=== PATIENT | female | born 1930 | race Caucasian/White ===

== ENCOUNTER 2017-07-28 16:33 | Inpatient (IN) | payer OTHER, BC, MEDICARE ==
[~2017-07-28] VITALS: Ht 152.4 cm; Wt 81.2 kg
[~2017-07-28 16:33] MED LIST: ADVAIR 250/501 DISK IH; ALLOPURINOL100 MG PO; ANASTROZOLE1 MG PO; ATORVASTATIN CA40 MG PO; DUONEB 2.5-0.5 M3 ML IH; ELIQUIS5 MG PO; GLIPIZIDE5 MG PO; LEVAQUIN750 MG PO; LOSARTAN POTAS100 MG PO; TOPROL XL100 MG PO
[2017-07-28 18:37] LABS: HEMATOCRIT 35.4 % (36.0-46.0); MCHC 33.1 G/DL (30.0-36.0); MCV 87.8 FL (83-99); NRBC (%) 0.2 /100 WBC (0-0); RBC DIS.WIDTH-CV 17.2 % (11.8-14.6); RBC DIS.WIDTH-SD 55.6 % (39-53); RED BLOOD COUNT 4.03 M/uL (3.80-5.20); WHITE BLOOD COUNT 19.4 K/uL (4.1-10.2)
[2017-07-28 18:48] LABS: CHLORIDE 106 mEq/L (99-109); POTASSIUM 3.3 mEq/L (3.7-5.4); SODIUM 133 mEq/L (136-147)
[2017-07-28 18:50] LABS: GLUCOSE 73 mg/dL (70-99)
[2017-07-28 18:51] LABS: ANION GAP 11 MEQ/L (2-14)
[2017-07-28 18:52] LABS: TOTAL BILIRUBIN 5.6 mg/dL (0.0-1.0)
[2017-07-28 18:53] LABS: ALKALINE PHOSPHATASE 268 IU/L (3-129); GFR ESTIMATE (CALCULATED) 38 mL/min/
[2017-07-28 18:54] LABS: UREA NITROGEN (BUN) 34 mg/dL (9-23)
[2017-07-28 19:48] LABS: ABS NEUTROPHIL COUNT 17.5; ANISOCYTOSIS 1+; BAND NEUTROPHILS 26.1 % (0-8.0); EOSINOPHIL ABS CT 0; HYPOCHROMASIA 1+; LYMPHOCYTES 5.2 % (15.0-45.0); MACROCYTES 1+; MYELOCYTES 0.9 %; OVALOCYTES 1+; PLAT.SUFFICIENCY ADEQUATE; PLATELET CLUMPS PRESENT - PLATELET COUNT APPEARS ADQ.; PLATELET COUNT ND K/uL (156-360); POIKILOCYTOSIS 1+; SEG.NEUTROPHILS 64.3 % (46.0-76.0)
[2017-07-28 19:49] LABS: MEAN PLAT.VOLUME ND uM^3 (9.5-12.4)
[2017-07-28 20:09] LABS: LIPASE 146 U/L (1.0-51.0)
[2017-07-28 20:25] LABS: ADD MIUA? YES; BILIRUBIN MODERATE; BLOOD SMALL; COLOR AMBER ((YELLOW)); GLUCOSE (STRIP) NEGATIVE; KETONES NEGATIVE; LEUKOCYTES TRACE; NITRITE NEGATIVE; PROTEIN (STRIP) >=500; SPECIFIC GRAVITY 1.019 (1.000-1.030)
[2017-07-28 20:44] LABS: ICTOTEST POSITIVE
[2017-07-28 20:47] LABS: EPITHELIAL CELLS 1+ /HPF; RED BLOOD CELLS RARE /HPF (0-5)
[2017-07-28 20:48] LABS: BACTERIA 3+ /HPF; CASTS PRESENT /LPF; COARSE GRANULAR CASTS RARE /LPF; CRYSTALS PRESENT; MUCUS RARE /LPF; UCUL ADDED? YES
[2017-07-28 20:51] LABS: WAXY CASTS 0-5 /LPF
[2017-07-28 20:52] LABS: AMORPHOUS URATES CRYSTALS 1+
[2017-07-28] MEDS ORDERED: ASPIR 8181 M1 PO (23:05)
[2017-07-29 01:31] VITALS: BP 100/56
[2017-07-29 04:13] VITALS: BP 78/42
[2017-07-29 06:07] LABS: HEMATOCRIT 30.4 % (36.0-46.0); MCH 28.7 PG (29.0-34.0); MCHC 32.2 G/DL (30.0-36.0); MCV 89.1 FL (83-99); MEAN PLAT.VOLUME 11.8 uM^3 (9.5-12.4); PLATELET COUNT 272 K/uL (156-360); RED BLOOD COUNT 3.41 M/uL (3.80-5.20); WHITE BLOOD COUNT 14.7 K/uL (4.1-10.2)
[2017-07-29 06:33] LABS: ALKALINE PHOSPHATASE 198 IU/L (3-129); ANION GAP 8 MEQ/L (2-14); CHLORIDE 109 MEQ/L (99-109); DIRECT BILIRUBIN 3.8 mg/dL (0.0-0.3); GFR ESTIMATE (CALCULATED) 30 mL/min/; GLUCOSE 65 mg/dL (70-99); SAMPLE HEMOLYSIS CHECK 0; SAMPLE ICTERIC CHECK 1; SAMPLE LIPEMIA CHECK 0; SODIUM 139 MEQ/L (136-147); TOTAL BILIRUBIN 5.4 MG/DL (0.0-1.0); UREA NITROGEN (BUN) 40 mg/dL (9-23)
[2017-07-29 06:34] LABS: POTASSIUM 4.4 MEQ/L (3.7-5.4)
[2017-07-29 07:57] VITALS: BP 96/58
[2017-07-29 11:38] VITALS: BP 107/51
[2017-07-29 15:39] LABS: ANION GAP 10 MEQ/L (2-14); CHLORIDE 109 MEQ/L (99-109); GFR ESTIMATE (CALCULATED) 30 mL/min/; GLUCOSE 45 mg/dL (70-99); POTASSIUM 3.7 MEQ/L (3.7-5.4); SAMPLE HEMOLYSIS CHECK 0; SAMPLE ICTERIC CHECK 1; SAMPLE LIPEMIA CHECK 0; SODIUM 137 MEQ/L (136-147); UREA NITROGEN (BUN) 46 mg/dL (9-23)
[2017-07-29 16:03] VITALS: BP 93/52
[2017-07-29 19:36] VITALS: BP 92/49
[2017-07-30 00:31] VITALS: BP 105/51
[2017-07-30 04:03] VITALS: BP 115/57
[2017-07-30 05:51] LABS: HEMATOCRIT 27.4 % (36.0-46.0); MCH 28.6 PG (29.0-34.0); MCHC 32.5 G/DL (30.0-36.0); MCV 88.1 FL (83-99); MEAN PLAT.VOLUME 11.7 uM^3 (9.5-12.4); NRBC (%) 0.4 /100 WBC (0-0); PLATELET COUNT 246 K/uL (156-360); RBC DIS.WIDTH-CV 17.9 % (11.8-14.6); RED BLOOD COUNT 3.11 M/uL (3.80-5.20); WHITE BLOOD COUNT 13.3 K/uL (4.1-10.2)
[2017-07-30 06:37] LABS: ALKALINE PHOSPHATASE 222 IU/L (3-129); ANION GAP 11 MEQ/L (2-14); CHLORIDE 114 MEQ/L (99-109); GFR ESTIMATE (CALCULATED) 28 mL/min/; GLUCOSE 38 mg/dL (70-99); POTASSIUM 3.9 MEQ/L (3.7-5.4); SAMPLE HEMOLYSIS CHECK 0; SAMPLE ICTERIC CHECK 1; SAMPLE LIPEMIA CHECK 0; SODIUM 142 MEQ/L (136-147); TOTAL BILIRUBIN 5.5 MG/DL (0.0-1.0); UREA NITROGEN (BUN) 50 mg/dL (9-23)
[2017-07-30 07:54] VITALS: BP 111/57
[2017-07-30 09:05] LABS: TROP-I INTERPRETATION NEGATIVE
[2017-07-30 09:18] LABS: POINT-OF-CARE METER ID UU14162508
[2017-07-30 12:52] LABS: POINT-OF-CARE METER ID UU14162508
[2017-07-30 15:34] VITALS: BP 118/58
[2017-07-30 15:54] LABS: EOSINOPHIL (%) 0 % (0-5); HEMATOCRIT 28.5 % (36.0-46.0); IMMATURE GRANULOCYTE COUNT 0.2 K/uL; INSTRUMENT ABS NEUTROPHIL CT 8.9 K/uL; LYMPHOCYTE COUNT 0.7 K/uL (1.0-2.8); MCH 28.4 PG (29.0-34.0); MCHC 32.6 G/DL (30.0-36.0); MCV 86.9 FL (83-99); MEAN PLAT.VOLUME 11.7 uM^3 (9.5-12.4); MONOCYTE (%) 10.5 % (3-12); MONOCYTE COUNT 1.2 K/uL (0-0.8); NEUTROPHIL (%) 81.2 % (45-76); NEUTROPHIL COUNT 8.9 K/uL (1.8-6.4); NRBC (%) 0.6 /100 WBC (0-0); PLATELET COUNT 236 K/uL (156-360); RBC DIS.WIDTH-CV 17.7 % (11.8-14.6); RBC DIS.WIDTH-SD 56.4 % (39-53); RED BLOOD COUNT 3.28 M/uL (3.80-5.20)
[2017-07-30 15:55] LABS: POINT-OF-CARE METER ID UU14162508
[2017-07-30 16:03] LABS: INTER. NORMALIZED RATIO 1.7; PROTHROMBIN TIME 19.2 SEC (10.2-12.9)
[2017-07-30 16:24] LABS: TROP-I INTERPRETATION INDETERMINATE; TROPONIN-I 0.52 ng/mL (0.0-0.30)
[2017-07-30 16:25] LABS: ANION GAP 8 MEQ/L (2-14); CHLORIDE 113 MEQ/L (99-109); GFR ESTIMATE (CALCULATED) 25 mL/min/; GLUCOSE 122 mg/dL (70-99); POTASSIUM 3.5 MEQ/L (3.7-5.4); SAMPLE HEMOLYSIS CHECK 0; SAMPLE ICTERIC CHECK 1; SAMPLE LIPEMIA CHECK 0; SODIUM 139 MEQ/L (136-147); UREA NITROGEN (BUN) 52 mg/dL (9-23)
[2017-07-30 20:50] VITALS: BP 120/59
[2017-07-30 21:16] LABS: POINT-OF-CARE METER ID UU14314084
[2017-07-30 22:11] LABS: POINT-OF-CARE METER ID UU14162508
[2017-07-31] VITALS (7 sets, daily range): BP systolic 101–141; BP diastolic 47–61
[2017-07-31 05:55] LABS: HEMATOCRIT 26.4 % (36.0-46.0); MCH 28.8 PG (29.0-34.0); MCV 87.4 FL (83-99); MEAN PLAT.VOLUME 11.9 uM^3 (9.5-12.4); NRBC (%) 0.5 /100 WBC (0-0); PLATELET COUNT 219 K/uL (156-360); RBC DIS.WIDTH-CV 18.5 % (11.8-14.6); RBC DIS.WIDTH-SD 59.4 % (39-53); RED BLOOD COUNT 3.02 M/uL (3.80-5.20); WHITE BLOOD COUNT 10.1 K/uL (4.1-10.2)
[2017-07-31 06:16] LABS: POINT-OF-CARE METER ID UU14162508
[2017-07-31 06:32] LABS: ALKALINE PHOSPHATASE 244 IU/L (3-129); ANION GAP 9 MEQ/L (2-14); CHLORIDE 113 MEQ/L (99-109); GFR ESTIMATE (CALCULATED) 24 mL/min/; POTASSIUM 3.7 MEQ/L (3.7-5.4); SAMPLE HEMOLYSIS CHECK 0; SAMPLE ICTERIC CHECK 1; SAMPLE LIPEMIA CHECK 0; SODIUM 138 MEQ/L (136-147); TOTAL BILIRUBIN 4.9 MG/DL (0.0-1.0); UREA NITROGEN (BUN) 49 mg/dL (9-23)
[2017-07-31 06:34] LABS: GLUCOSE 188 mg/dL (70-99)
[2017-07-31 07:42] LABS: TROP-I INTERPRETATION INDETERMINATE; TROPONIN-I 0.33 ng/mL (0.0-0.30)
[2017-07-31 12:11] LABS: POINT-OF-CARE METER ID UU14162508
[2017-07-31 15:10] LABS: HEMATOCRIT 29.1 % (36.0-46.0); MCHC 31.6 G/DL (30.0-36.0); MCV 88.4 FL (83-99); MEAN PLAT.VOLUME 11.9 uM^3 (9.5-12.4); NRBC (%) 0.4 /100 WBC (0-0); PLATELET COUNT 222 K/uL (156-360); RBC DIS.WIDTH-CV 18.6 % (11.8-14.6); RBC DIS.WIDTH-SD 61.1 % (39-53); RED BLOOD COUNT 3.29 M/uL (3.80-5.20); WHITE BLOOD COUNT 10.2 K/uL (4.1-10.2)
[2017-07-31 15:30] LABS: TROP-I INTERPRETATION NEGATIVE; TROPONIN-I 0.27 ng/mL (0.0-0.30)
[2017-07-31 15:37] LABS: ANION GAP 9 MEQ/L (2-14); CHLORIDE 113 MEQ/L (99-109); POTASSIUM 3.6 MEQ/L (3.7-5.4); SAMPLE HEMOLYSIS CHECK 0; SAMPLE ICTERIC CHECK 1; SAMPLE LIPEMIA CHECK 0; SODIUM 139 MEQ/L (136-147); TOTAL BILIRUBIN 4.7 MG/DL (0.0-1.0)
[2017-07-31 15:47] LABS: ALKALINE PHOSPHATASE 266 IU/L (3-129); GFR ESTIMATE (CALCULATED) 21 mL/min/; GLUCOSE 202 mg/dL (70-99); UREA NITROGEN (BUN) 49 mg/dL (9-23)
[2017-07-31 16:40] LABS: POINT-OF-CARE METER ID UU14162508
[2017-07-31 18:32] LABS: BASE EXCESS -9.1 mEq/L (-3 to +3); BICARBONATE 14.8 mEq/L (22-26); CARBOXY HGB 1.4 % (0-5); METHEMOGLOBIN 1.5 % (0-1.5); PCO2 25 mm Hg (35-45); PO2 74 mm Hg (80-100); pH 7.38 (7.35-7.45)
[2017-07-31 18:34] LABS: COMMENTS - BLOOD GASES C+; DEVICE ROOM AIR; SITE LR; TOTAL RESP RATE 20 resp/min
[2017-07-31 20:25] LABS: ANION GAP 8 MEQ/L (2-14); CHLORIDE 115 MEQ/L (99-109); POTASSIUM 3.5 MEQ/L (3.7-5.4); SAMPLE HEMOLYSIS CHECK 0; SAMPLE ICTERIC CHECK 1; SAMPLE LIPEMIA CHECK 0; SODIUM 138 MEQ/L (136-147)
[2017-07-31 20:30] LABS: GFR ESTIMATE (CALCULATED) 21 mL/min/; GLUCOSE 199 mg/dL (70-99); UREA NITROGEN (BUN) 49 mg/dL (9-23)
[2017-08-01] VITALS (7 sets, daily range): BP systolic 110–158; BP diastolic 53–74
[2017-08-01 05:16] LABS: HEMATOCRIT 27.4 % (36.0-46.0); MCHC 32.1 G/DL (30.0-36.0); MCV 87.3 FL (83-99); MEAN PLAT.VOLUME 12.3 uM^3 (9.5-12.4); NRBC (%) 0.3 /100 WBC (0-0); PLATELET COUNT 195 K/uL (156-360); RBC DIS.WIDTH-SD 60.8 % (39-53); RED BLOOD COUNT 3.14 M/uL (3.80-5.20); WHITE BLOOD COUNT 10.6 K/uL (4.1-10.2)
[2017-08-01 05:59] LABS: ALKALINE PHOSPHATASE 243 IU/L (3-129); ANION GAP 9 MEQ/L (2-14); CHLORIDE 117 MEQ/L (99-109); GFR ESTIMATE (CALCULATED) 18 mL/min/; GLUCOSE 206 mg/dL (70-99); POTASSIUM 3.5 MEQ/L (3.7-5.4); SAMPLE HEMOLYSIS CHECK 0; SAMPLE ICTERIC CHECK 1; SAMPLE LIPEMIA CHECK 0; SODIUM 141 MEQ/L (136-147); TOTAL BILIRUBIN 3.6 MG/DL (0.0-1.0); UREA NITROGEN (BUN) 47 mg/dL (9-23)
[2017-08-02 04:38] VITALS: BP 139/67
[2017-08-02 05:30] LABS: HEMATOCRIT 26.9 % (36.0-46.0); MCH 28.3 PG (29.0-34.0); MCHC 33.1 G/DL (30.0-36.0); MCV 85.7 FL (83-99); MEAN PLAT.VOLUME 12.7 uM^3 (9.5-12.4); NRBC (%) 0.1 /100 WBC (0-0); PLATELET COUNT 188 K/uL (156-360); RBC DIS.WIDTH-CV 19.5 % (11.8-14.6); RBC DIS.WIDTH-SD 60.5 % (39-53); RED BLOOD COUNT 3.14 M/uL (3.80-5.20); WHITE BLOOD COUNT 13.7 K/uL (4.1-10.2)
[2017-08-02 06:01] LABS: ALKALINE PHOSPHATASE 228 IU/L (3-129); ANION GAP 8 MEQ/L (2-14); CHLORIDE 116 MEQ/L (99-109); GFR ESTIMATE (CALCULATED) 20 mL/min/; GLUCOSE 146 mg/dL (70-99); POTASSIUM 3.7 MEQ/L (3.7-5.4); SAMPLE HEMOLYSIS CHECK 0; SAMPLE ICTERIC CHECK 0; SAMPLE LIPEMIA CHECK 0; SODIUM 144 MEQ/L (136-147); UREA NITROGEN (BUN) 45 mg/dL (9-23)
[2017-08-02 06:03] LABS: TOTAL BILIRUBIN 2.7 MG/DL (0.0-1.0)
[2017-08-02 07:43] VITALS: BP 137/64
[2017-08-02 11:25] VITALS: BP 141/70
[2017-08-02 14:23] VITALS: BP 155/70
[2017-08-02 19:52] VITALS: BP 143/67
[2017-08-03] VITALS (7 sets, daily range): BP systolic 130–166; BP diastolic 58–79
[2017-08-03 05:34] LABS: EOSINOPHIL (%) 1.1 % (0-5); EOSINOPHIL COUNT 0.1 K/uL (0-0.3); HEMATOCRIT 25.3 % (36.0-46.0); IMMATURE GRANULOCYTE (%) 1.9 % (0.0-0.7); IMMATURE GRANULOCYTE COUNT 0.2 K/uL; INSTRUMENT ABS NEUTROPHIL CT 8.6 K/uL; LYMPHOCYTE COUNT 1.2 K/uL (1.0-2.8); MCH 28.3 PG (29.0-34.0); MCHC 34.4 G/DL (30.0-36.0); MCV 82.4 FL (83-99); MEAN PLAT.VOLUME 12.9 uM^3 (9.5-12.4); MONOCYTE (%) 10.7 % (3-12); MONOCYTE COUNT 1.2 K/uL (0-0.8); NEUTROPHIL COUNT 8.6 K/uL (1.8-6.4); PLATELET COUNT 198 K/uL (156-360); RBC DIS.WIDTH-CV 18.2 % (11.8-14.6); RBC DIS.WIDTH-SD 54.2 % (39-53); RED BLOOD COUNT 3.07 M/uL (3.80-5.20); WHITE BLOOD COUNT 11.3 K/uL (4.1-10.2)
[2017-08-03 05:59] LABS: ALKALINE PHOSPHATASE 202 IU/L (3-129); ANION GAP 7 MEQ/L (2-14); CHLORIDE 107 MEQ/L (99-109); GFR ESTIMATE (CALCULATED) 24 mL/min/; GLUCOSE 131 mg/dL (70-99); MAGNESIUM 1.6 mg/dl (1.3-2.7); SAMPLE HEMOLYSIS CHECK 0; SAMPLE ICTERIC CHECK 0; SAMPLE LIPEMIA CHECK 0; SODIUM 141 MEQ/L (136-147); TOTAL BILIRUBIN 2.7 MG/DL (0.0-1.0); UREA NITROGEN (BUN) 44 mg/dL (9-23)
[2017-08-04] VITALS (7 sets, daily range): BP systolic 106–171; BP diastolic 56–85
[2017-08-04 06:26] LABS: EOSINOPHIL COUNT 0.1 K/uL (0-0.3); HEMATOCRIT 25.7 % (36.0-46.0); IMMATURE GRANULOCYTE (%) 1.5 % (0.0-0.7); IMMATURE GRANULOCYTE COUNT 0.2 K/uL; INSTRUMENT ABS NEUTROPHIL CT 8.4 K/uL; LYMPHOCYTE COUNT 1.3 K/uL (1.0-2.8); MCH 28.7 PG (29.0-34.0); MCHC 34.6 G/DL (30.0-36.0); MCV 82.9 FL (83-99); MEAN PLAT.VOLUME 12.9 uM^3 (9.5-12.4); MONOCYTE (%) 8.8 % (3-12); NEUTROPHIL (%) 76.4 % (45-76); NEUTROPHIL COUNT 8.4 K/uL (1.8-6.4); PLATELET COUNT 210 K/uL (156-360); RBC DIS.WIDTH-CV 18.2 % (11.8-14.6); RBC DIS.WIDTH-SD 54.2 % (39-53); WHITE BLOOD COUNT 10.9 K/uL (4.1-10.2)
[2017-08-04 06:46] LABS: ALKALINE PHOSPHATASE 173 IU/L (3-129); ANION GAP 7 MEQ/L (2-14); CHLORIDE 108 MEQ/L (99-109); GFR ESTIMATE (CALCULATED) 30 mL/min/; GLUCOSE 89 mg/dL (70-99); MAGNESIUM 1.5 mg/dl (1.3-2.7); POTASSIUM 4.1 MEQ/L (3.7-5.4); SAMPLE HEMOLYSIS CHECK 0; SAMPLE ICTERIC CHECK 1; SAMPLE LIPEMIA CHECK 0; SODIUM 144 MEQ/L (136-147); TOTAL BILIRUBIN 3.2 MG/DL (0.0-1.0); UREA NITROGEN (BUN) 37 mg/dL (9-23)
[2017-08-05 04:23] VITALS: BP 132/61
[2017-08-05 05:28] LABS: EOSINOPHIL (%) 1.2 % (0-5); EOSINOPHIL COUNT 0.2 K/uL (0-0.3); HEMATOCRIT 26.4 % (36.0-46.0); IMMATURE GRANULOCYTE (%) 1.1 % (0.0-0.7); IMMATURE GRANULOCYTE COUNT 0.1 K/uL; INSTRUMENT ABS NEUTROPHIL CT 9.3 K/uL; LYMPHOCYTE COUNT 1.7 K/uL (1.0-2.8); MCH 28.5 PG (29.0-34.0); MCHC 33.7 G/DL (30.0-36.0); MCV 84.6 FL (83-99); MEAN PLAT.VOLUME 12.8 uM^3 (9.5-12.4); MONOCYTE (%) 8.1 % (3-12); NEUTROPHIL COUNT 9.3 K/uL (1.8-6.4); PLATELET COUNT 251 K/uL (156-360); RBC DIS.WIDTH-CV 18.1 % (11.8-14.6); RBC DIS.WIDTH-SD 55.1 % (39-53); RED BLOOD COUNT 3.12 M/uL (3.80-5.20); WHITE BLOOD COUNT 12.3 K/uL (4.1-10.2)
[2017-08-05 05:45] LABS: ALKALINE PHOSPHATASE 151 IU/L (3-129); ANION GAP 7 MEQ/L (2-14); CHLORIDE 108 MEQ/L (99-109); GFR ESTIMATE (CALCULATED) 38 mL/min/; GLUCOSE 89 mg/dL (70-99); MAGNESIUM 1.6 mg/dl (1.3-2.7); SAMPLE HEMOLYSIS CHECK 0; SAMPLE ICTERIC CHECK 0; SAMPLE LIPEMIA CHECK 0; SODIUM 141 MEQ/L (136-147); UREA NITROGEN (BUN) 38 mg/dL (9-23)
[2017-08-05 05:46] LABS: TOTAL BILIRUBIN 2.5 MG/DL (0.0-1.0)
[2017-08-05 08:30] VITALS: BP 179/84
[2017-08-05 12:02] VITALS: BP 161/77
[2017-08-05 15:34] VITALS: BP 154/73
[2017-08-05 19:43] VITALS: BP 149/65
[2017-08-05 23:26] VITALS: BP 148/75
[2017-08-06 04:09] VITALS: BP 157/70
[2017-08-06 05:38] LABS: EOSINOPHIL (%) 1.3 % (0-5); EOSINOPHIL COUNT 0.1 K/uL (0-0.3); HEMATOCRIT 25.7 % (36.0-46.0); IMMATURE GRANULOCYTE (%) 1.1 % (0.0-0.7); IMMATURE GRANULOCYTE COUNT 0.1 K/uL; INSTRUMENT ABS NEUTROPHIL CT 6.5 K/uL; LYMPHOCYTE COUNT 1.5 K/uL (1.0-2.8); MCH 29.1 PG (29.0-34.0); MCHC 33.9 G/DL (30.0-36.0); MEAN PLAT.VOLUME 11.7 uM^3 (9.5-12.4); MONOCYTE (%) 7.9 % (3-12); MONOCYTE COUNT 0.7 K/uL (0-0.8); NEUTROPHIL COUNT 6.5 K/uL (1.8-6.4); PLATELET COUNT 247 K/uL (156-360); RBC DIS.WIDTH-CV 18.5 % (11.8-14.6); RBC DIS.WIDTH-SD 56.6 % (39-53); RED BLOOD COUNT 2.99 M/uL (3.80-5.20); WHITE BLOOD COUNT 8.9 K/uL (4.1-10.2)
[2017-08-06 07:20] VITALS: BP 168/65
[2017-08-06 07:30] LABS: ALKALINE PHOSPHATASE 157 IU/L (3-129); ANION GAP ND MEQ/L (2-14); CHLORIDE 110 MEQ/L (99-109); GLUCOSE 96 mg/dL (70-99); POTASSIUM 3.6 MEQ/L (3.7-5.4); SAMPLE HEMOLYSIS CHECK 0; SAMPLE ICTERIC CHECK 0; SAMPLE LIPEMIA CHECK 0; SODIUM 144 MEQ/L (136-147); UREA NITROGEN (BUN) 37 mg/dL (9-23)
[2017-08-06 07:31] LABS: TOTAL BILIRUBIN 1.9 MG/DL (0.0-1.0)
[2017-08-06 08:11] LABS: GFR ESTIMATE (CALCULATED) 45 mL/min/
[2017-08-06 12:04] VITALS: BP 152/71
[2017-08-06 16:22] VITALS: BP 150/69
[2017-08-06 19:32] VITALS: BP 164/77
[2017-08-06 23:42] VITALS: BP 161/72
[2017-08-07 04:00] VITALS: BP 168/76
[2017-08-07 05:50] LABS: HEMATOCRIT 26.2 % (36.0-46.0); MCH 28.8 PG (29.0-34.0); MCHC 32.8 G/DL (30.0-36.0); MCV 87.6 FL (83-99); MEAN PLAT.VOLUME 11.5 uM^3 (9.5-12.4); PLATELET COUNT 298 K/uL (156-360); RBC DIS.WIDTH-CV 18.3 % (11.8-14.6); RBC DIS.WIDTH-SD 55.5 % (39-53); RED BLOOD COUNT 2.99 M/uL (3.80-5.20); WHITE BLOOD COUNT 8.2 K/uL (4.1-10.2)
[2017-08-07 06:13] LABS: ALKALINE PHOSPHATASE 163 IU/L (3-129); ANION GAP 4 MEQ/L (2-14); CHLORIDE 110 MEQ/L (99-109); GFR ESTIMATE (CALCULATED) 50 mL/min/; GLUCOSE 94 mg/dL (70-99); MAGNESIUM 1.6 mg/dl (1.3-2.7); POTASSIUM 3.9 MEQ/L (3.7-5.4); SAMPLE HEMOLYSIS CHECK 0; SAMPLE ICTERIC CHECK 0; SAMPLE LIPEMIA CHECK 0; SODIUM 143 MEQ/L (136-147); TOTAL BILIRUBIN 1.7 MG/DL (0.0-1.0); UREA NITROGEN (BUN) 35 mg/dL (9-23)
[2017-08-07] MEDS ORDERED: AMOX TR-K CLV1 EAC3 PO (07:00)
[2017-08-07] MEDS ORDERED: ELIQUIS2.5 MG PO (07:01)
[2017-08-07 07:49] VITALS: BP 162/72
== END 2017-08-07 11:13 | DRG 444 ==
LOC: EME 16:33 → 4EAST 23:39 → 2EASTP 23:39 → EDOF 23:39 → ENRESERV 23:43 → 2EASTP 07-29 01:10 → ENRESERV 07-31 19:30 → 4EAST 07-31 21:21
PROVIDERS: Emergency Medicine; Internal Medicine; Radiology Diagnostic Radiology
DX: K80.42 Calculus of bile duct with acute cholecystitis without obstruction (principal); N17.0 Acute kidney failure with tubular necrosis; K85.10 Biliary acute pancreatitis without necrosis or infection; N18.3 Chronic kidney disease, stage 3 (moderate); E11.51 Type 2 diabetes mellitus with diabetic peripheral angiopathy without gangrene; E87.1 Hypo-osmolality and hyponatremia; E87.6 Hypokalemia; E11.649 Type 2 diabetes mellitus with hypoglycemia without coma; I24.8 Other forms of acute ischemic heart disease; E11.22 Type 2 diabetes mellitus with diabetic chronic kidney disease; I48.2 Chronic atrial fibrillation; I35.0 Nonrheumatic aortic (valve) stenosis; N39.0 Urinary tract infection, site not specified; I12.9 Hypertensive chronic kidney disease with stage 1 through stage 4 chronic kidney disease, or unspecified chronic kidney disease; K59.00 Constipation, unspecified; E78.5 Hyperlipidemia, unspecified; I70.209 Unspecified atherosclerosis of native arteries of extremities, unspecified extremity; E21.0 Primary hyperparathyroidism; Z66 Do not resuscitate; B96.89 Other specified bacterial agents as the cause of diseases classified elsewhere; E87.5 Hyperkalemia; E87.2 Acidosis; D64.9 Anemia, unspecified; B96.20 Unspecified Escherichia coli [E. coli] as the cause of diseases classified elsewhere; Z68.34 Body mass index [BMI] 34.0-34.9, adult; Z88.2 Allergy status to sulfonamides; Z86.73 Personal history of transient ischemic attack (TIA), and cerebral infarction without residual deficits; Z79.01 Long term (current) use of anticoagulants; R79.1 Abnormal coagulation profile; Z79.84 Long term (current) use of oral hypoglycemic drugs; Z85.3 Personal history of malignant neoplasm of breast; Z87.440 Personal history of urinary (tract) infections
CPT/HCPCS: 36600; 49405; 70450; 71010; 71020; 74181; 76705; 76770; 80048; 80048 91; 80053; 80069; 80076; 81003; 82803; 82948; 83605; 83690; 83735; 84100; 84484; 85025; 85027; 85610; 87040; 87070; 87075; 87076; 87077; 87086 GA; 87186; 87205; 87801; 89190; 93005; 94640; 94640 76; 94799; 99202; 99281; 99285; J0692; J1940; J2543; J3010; J3480; J7030; J7040; J7042; J7050; J7070

== ENCOUNTER 2017-08-16 14:47 | Inpatient (IN) | payer OTHER, BC ==
[~2017-08-16] VITALS: Ht 157.5 cm; Wt 72.0 kg
[~2017-08-16 14:47] MED LIST changes: +AMOX TR-K CLV1 EAC3 PO; +ASPIR 8181 M1 PO; +ELIQUIS2.5 MG PO
[2017-08-16 15:48] LABS: INTER. NORMALIZED RATIO 1.6; PROTHROMBIN TIME 18.4 SEC (10.2-12.9)
[2017-08-16 15:51] LABS: PTT 29.8 SEC (25-37)
[2017-08-16 15:53] LABS: CHLORIDE 107 mEq/L (99-109); POTASSIUM 3.9 mEq/L (3.7-5.4); SODIUM 143 mEq/L (136-147)
[2017-08-16 15:54] LABS: MAGNESIUM 1.5 mg/dL (1.3-2.7)
[2017-08-16 15:55] LABS: GLUCOSE 93 mg/dL (70-99)
[2017-08-16 15:57] LABS: ANION GAP 13 MEQ/L (2-14); TOTAL BILIRUBIN 1.5 mg/dL (0.0-1.0)
[2017-08-16 15:59] LABS: ALKALINE PHOSPHATASE 159 IU/L (3-129); EOSINOPHIL (%) 3.6 % (0-5); EOSINOPHIL COUNT 0.2 K/uL (0-0.3); GFR ESTIMATE (CALCULATED) 55 mL/min/; HEMATOCRIT 28.9 % (36.0-46.0); IMMATURE GRANULOCYTE (%) 0.2 % (0.0-0.7); INSTRUMENT ABS NEUTROPHIL CT 3.2 K/uL; LYMPHOCYTE COUNT 1.6 K/uL (1.0-2.8); MCHC 31.5 G/DL (30.0-36.0); MEAN PLAT.VOLUME 10.7 uM^3 (9.5-12.4); MONOCYTE (%) 10.1 % (3-12); MONOCYTE COUNT 0.6 K/uL (0-0.8); NEUTROPHIL (%) 57.4 % (45-76); NEUTROPHIL COUNT 3.2 K/uL (1.8-6.4); PLATELET COUNT 285 K/uL (156-360); RBC DIS.WIDTH-CV 20.2 % (11.8-14.6); RBC DIS.WIDTH-SD 68.1 % (39-53); RED BLOOD COUNT 3.14 M/uL (3.80-5.20); WHITE BLOOD COUNT 5.5 K/uL (4.1-10.2)
[2017-08-16 16:00] LABS: UREA NITROGEN (BUN) 17 mg/dL (9-23)
[2017-08-16 16:02] LABS: LIPASE 50 U/L (1.0-51.0)
[2017-08-16 16:05] LABS: TROP-I INTERPRETATION NEGATIVE; TROPONIN-I 0.16 ng/mL (0.0-0.30)
[2017-08-16] MEDS ORDERED: DUONEB 2.5-0.5 M3 ML AEROSOL (16:17)
[2017-08-16] MEDS ORDERED: DULCOLAX10 MG PR (16:19)
[2017-08-16] MEDS ORDERED: FLEET ENEMA-AD118 ML PR (16:20)
[2017-08-16] MEDS ORDERED: PHILLIPS'400 MG/5 M PO (16:20)
[2017-08-16] MEDS ORDERED: TYLENOL REGULA325 MG PO (16:21)
[2017-08-16 17:13] LABS: ADD MIUA? YES; BILIRUBIN NEGATIVE; BLOOD SMALL; COLOR YELLOW ((YELLOW)); GLUCOSE (STRIP) NEGATIVE; KETONES 5; LEUKOCYTES NEGATIVE; NITRITE NEGATIVE; PROTEIN (STRIP) 30; SPECIFIC GRAVITY 1.011 (1.000-1.030)
[2017-08-16 17:22] LABS: BACTERIA NONE SEEN /HPF; BUDDING YEAST 1+; EPITHELIAL CELLS NONE SEEN /HPF; MUCUS TRACE /LPF; RED BLOOD CELLS 0-5 /HPF (0-5); UCUL ADDED? YES
[2017-08-17 06:58] LABS: HEMATOCRIT 28.5 % (36.0-46.0); MCH 29.5 PG (29.0-34.0); MCHC 31.6 G/DL (30.0-36.0); MCV 93.4 FL (83-99); PLATELET COUNT 276 K/uL (156-360); RBC DIS.WIDTH-SD 69.2 % (39-53); RED BLOOD COUNT 3.05 M/uL (3.80-5.20); WHITE BLOOD COUNT 5.4 K/uL (4.1-10.2)
[2017-08-17 08:49] LABS: ANION GAP 9 MEQ/L (2-14); CHLORIDE 112 MEQ/L (99-109); GFR ESTIMATE (CALCULATED) > 59 mL/min/; GLUCOSE 76 mg/dL (70-99); POTASSIUM 4.2 MEQ/L (3.7-5.4); SAMPLE HEMOLYSIS CHECK 0; SAMPLE ICTERIC CHECK 0; SAMPLE LIPEMIA CHECK 0; SODIUM 145 MEQ/L (136-147); UREA NITROGEN (BUN) 19 mg/dL (9-23)
[2017-08-17 17:39] VITALS: BP 174/73
[2017-08-17 17:47] LABS: TROP-I INTERPRETATION POSITIVE
[2017-08-17 20:56] VITALS: BP 180/77
[2017-08-18] VITALS (7 sets, daily range): BP systolic 115–197; BP diastolic 65–98
[2017-08-18 04:19] LABS: TROP-I INTERPRETATION POSITIVE
[2017-08-18 04:25] LABS: TROPONIN-I 1.28 ng/mL (0.0-0.30)
[2017-08-18 04:35] LABS: GFR ESTIMATE (CALCULATED) 55 mL/min/; HDL CHOLESTEROL 27 MG/DL (Desirable>=50); LDL CHOLESTEROL 93 mg/dL (Desirable<100); NON-HDL CHOLESTEROL 119 mg/dL (Desirable<160); TOTAL CHOLESTEROL 146 mg/dL (Desirable<200); TRIGLYCERIDES 129 MG/DL (Normal: <150)
[2017-08-18 07:51] LABS: Estimated Average Glucose 123 mg/dL (70-123); HEMOGLOBIN A1c (GLYCOHEMOGLOB) 5.9 % HGB (Below 5.7)
[2017-08-18 10:13] LABS: EOSINOPHIL (%) 2.2 % (0-5); EOSINOPHIL COUNT 0.1 K/uL (0-0.3); HEMATOCRIT 29.4 % (36.0-46.0); IMMATURE GRANULOCYTE (%) 0.5 % (0.0-0.7); INSTRUMENT ABS NEUTROPHIL CT 4.2 K/uL; LYMPHOCYTE COUNT 1.3 K/uL (1.0-2.8); MCH 29.8 PG (29.0-34.0); MCHC 31.3 G/DL (30.0-36.0); MCV 95.1 FL (83-99); MEAN PLAT.VOLUME 11.2 uM^3 (9.5-12.4); MONOCYTE (%) 10.5 % (3-12); MONOCYTE COUNT 0.7 K/uL (0-0.8); NEUTROPHIL (%) 65.8 % (45-76); NEUTROPHIL COUNT 4.2 K/uL (1.8-6.4); PLATELET COUNT 248 K/uL (156-360); RBC DIS.WIDTH-CV 20.2 % (11.8-14.6); RBC DIS.WIDTH-SD 69.5 % (39-53); RED BLOOD COUNT 3.09 M/uL (3.80-5.20); WHITE BLOOD COUNT 6.4 K/uL (4.1-10.2)
[2017-08-18 10:21] LABS: ANION GAP 8 MEQ/L (2-14); CHLORIDE 113 MEQ/L (99-109); GFR ESTIMATE (CALCULATED) > 59 mL/min/; GLUCOSE 84 mg/dL (70-99); SAMPLE HEMOLYSIS CHECK 0; SAMPLE ICTERIC CHECK 0; SAMPLE LIPEMIA CHECK 0; SODIUM 145 MEQ/L (136-147); UREA NITROGEN (BUN) 21 mg/dL (9-23)
[2017-08-18 10:26] LABS: TROP-I INTERPRETATION POSITIVE
[2017-08-18 16:21] LABS: TROP-I INTERPRETATION POSITIVE; TROPONIN-I 1.04 ng/mL (0.0-0.30)
[2017-08-19 00:23] LABS: METH RESISTANT S AUREUS PCR NEGATIVE (NEGATIVE)
[2017-08-19 00:28] LABS: PROBE CHECK PASS; SPECIMEN PROCESSING CONTROL PASS
[2017-08-19 04:58] VITALS: BP 134/60
[2017-08-19 06:39] LABS: TROP-I INTERPRETATION POSITIVE
[2017-08-19 07:06] VITALS: BP 160/81
[2017-08-19 11:28] VITALS: BP 161/70
[2017-08-19 15:44] VITALS: BP 174/82
[2017-08-19 19:13] VITALS: BP 185/99
[2017-08-19 22:01] VITALS: BP 165/70
[2017-08-20 04:21] VITALS: BP 155/71
[2017-08-20 07:10] VITALS: BP 183/85
[2017-08-20 12:18] VITALS: BP 178/79
[2017-08-20 17:20] VITALS: BP 176/81
[2017-08-20 19:59] VITALS: BP 183/86
[2017-08-21 04:26] VITALS: BP 180/82
[2017-08-21 07:20] VITALS: BP 163/72
[2017-08-21 08:26] LABS: POINT-OF-CARE METER ID UU13113717
[2017-08-21 16:48] VITALS: BP 173/81
[2017-08-21 17:44] LABS: POINT-OF-CARE METER ID UU14174225
[2017-08-21 19:34] VITALS: BP 164/76
[2017-08-21 21:14] LABS: POINT-OF-CARE METER ID UU13113717
[2017-08-22 00:09] VITALS: BP 155/79
[2017-08-22 03:55] VITALS: BP 169/72
[2017-08-22 06:52] LABS: HEMATOCRIT 30.5 % (36.0-46.0); MCH 29.3 PG (29.0-34.0); MCHC 32.5 G/DL (30.0-36.0); MEAN PLAT.VOLUME 11.3 uM^3 (9.5-12.4); PLATELET COUNT 231 K/uL (156-360); RBC DIS.WIDTH-CV 20.2 % (11.8-14.6); RBC DIS.WIDTH-SD 66.1 % (39-53); RED BLOOD COUNT 3.38 M/uL (3.80-5.20); WHITE BLOOD COUNT 6.1 K/uL (4.1-10.2)
[2017-08-22 06:53] LABS: MCV 90.2 FL (83-99)
[2017-08-22 07:14] LABS: ANION GAP 10 MEQ/L (2-14); CHLORIDE 106 MEQ/L (99-109); GFR ESTIMATE (CALCULATED) > 59 mL/min/; GLUCOSE 122 mg/dL (70-99); MAGNESIUM 1.5 mg/dl (1.3-2.7); SAMPLE HEMOLYSIS CHECK 0; SAMPLE ICTERIC CHECK 0; SAMPLE LIPEMIA CHECK 0; SODIUM 142 MEQ/L (136-147); UREA NITROGEN (BUN) 14 mg/dL (9-23)
[2017-08-22 07:54] LABS: POINT-OF-CARE METER ID UU13113717
[2017-08-22 07:59] VITALS: BP 165/83
[2017-08-22 11:51] VITALS: BP 160/74
[2017-08-22 11:57] LABS: POINT-OF-CARE METER ID UU13113717
[2017-08-22 16:21] VITALS: BP 154/96
[2017-08-22 19:39] VITALS: BP 197/86
[2017-08-22 21:13] LABS: POINT-OF-CARE METER ID UU13113717
[2017-08-23 00:31] VITALS: BP 184/75
[2017-08-23 03:35] VITALS: BP 145/71
[2017-08-23 06:36] LABS: EOSINOPHIL (%) 4.8 % (0-5); EOSINOPHIL COUNT 0.3 K/uL (0-0.3); IMMATURE GRANULOCYTE (%) 0.6 % (0.0-0.7); INSTRUMENT ABS NEUTROPHIL CT 2.9 K/uL; LYMPHOCYTE COUNT 2.3 K/uL (1.0-2.8); MCH 29.3 PG (29.0-34.0); MCHC 31.9 G/DL (30.0-36.0); MCV 91.7 FL (83-99); MONOCYTE (%) 14.3 % (3-12); MONOCYTE COUNT 0.9 K/uL (0-0.8); NEUTROPHIL COUNT 2.9 K/uL (1.8-6.4); PLATELET COUNT 201 K/uL (156-360); RBC DIS.WIDTH-CV 20.1 % (11.8-14.6); RBC DIS.WIDTH-SD 67.5 % (39-53); RED BLOOD COUNT 3.38 M/uL (3.80-5.20); WHITE BLOOD COUNT 6.5 K/uL (4.1-10.2)
[2017-08-23 07:13] LABS: ANION GAP 7 MEQ/L (2-14); CHLORIDE 107 MEQ/L (99-109); GFR ESTIMATE (CALCULATED) > 59 mL/min/; GLUCOSE 118 mg/dL (70-99); MAGNESIUM 1.5 mg/dl (1.3-2.7); SAMPLE HEMOLYSIS CHECK 0; SAMPLE ICTERIC CHECK 0; SAMPLE LIPEMIA CHECK 0; SODIUM 140 MEQ/L (136-147); UREA NITROGEN (BUN) 14 mg/dL (9-23)
[2017-08-23 07:14] LABS: POTASSIUM 3.7 MEQ/L (3.7-5.4)
[2017-08-23 07:49] VITALS: BP 149/87
[2017-08-23 11:49] VITALS: BP 138/80
[2017-08-23 16:12] VITALS: BP 163/70
[2017-08-23 20:26] VITALS: BP 164/75
[2017-08-24 00:09] VITALS: BP 192/92
[2017-08-24 00:30] VITALS: BP 170/84
[2017-08-24 04:05] VITALS: BP 159/87
[2017-08-24 06:43] VITALS: BP 185/75
[2017-08-24] MEDS ORDERED: ATORVASTATIN CA40 MG PO (11:04)
[2017-08-24] MEDS ORDERED: ASPIRIN81 M2 PO (11:04)
[2017-08-24] MEDS ORDERED: DUONEB 2.5-0.5 M3 ML AEROSOL (11:05)
[2017-08-24] MEDS ORDERED: ELIQUIS5 MG PO (11:24)
[2017-08-24] MEDS ORDERED: AMLODIPINE BESYL5 MG PO (12:32)
== END 2017-08-24 13:38 | disposition home health service (06) | DRG 64 ==
LOC: EME 14:47 → EDOF 18:26 → ENRESERV 18:27 → 5WEST 08-17 16:45 → 4EAST 08-17 16:46 → ENRESERV 08-17 16:53 → 5SOUTH 08-17 19:44 → ENRESERV 08-17 19:46 → 4EAST 08-17 20:45 → ENRESERV 08-20 14:27 → 5SOUTH 08-20 17:06
PROVIDERS: Emergency Medicine; Hospitalist; Internal Medicine; Internal Medicine Cardiovascular Disease; Physician Assistant
DX: I63.40 Cerebral infarction due to embolism of unspecified cerebral artery (principal); R45.1 Restlessness and agitation; F05 Delirium due to known physiological condition; J18.9 Pneumonia, unspecified organism; Y95 Nosocomial condition; I48.2 Chronic atrial fibrillation; J84.10 Pulmonary fibrosis, unspecified; I10 Essential (primary) hypertension; R74.8 Abnormal levels of other serum enzymes; E87.6 Hypokalemia; R18.8 Other ascites; I71.2 Thoracic aortic aneurysm, without rupture; I27.20 Pulmonary hypertension, unspecified; I08.3 Combined rheumatic disorders of mitral, aortic and tricuspid valves; Z66 Do not resuscitate; I65.23 Occlusion and stenosis of bilateral carotid arteries; F03.90 Unspecified dementia, unspecified severity, without behavioral disturbance, psychotic disturbance, mood disturbance, and anxiety; I70.0 Atherosclerosis of aorta; E11.9 Type 2 diabetes mellitus without complications; K80.20 Calculus of gallbladder without cholecystitis without obstruction; D64.9 Anemia, unspecified; I45.10 Unspecified right bundle-branch block; E78.5 Hyperlipidemia, unspecified; Z91.81 History of falling; Z79.01 Long term (current) use of anticoagulants; Z86.73 Personal history of transient ischemic attack (TIA), and cerebral infarction without residual deficits
CPT/HCPCS: 70450; 70547; 70551; 71010; 72125; 72131; 74176; 76705; 80048; 80053; 80061; 81003; 82565; 82948; 83036; 83605; 83690; 83735; 84484; 85025; 85027; 85610; 85730; 87040; 87086; 87641; 92610 GN; 93005; 93306; 93880; 94640; 94640 76; 94760; 94799; 95819; 97530 GP; 99202; 99281; 99285; G0378; J0360; J0692; J1200; J1630; J1650; J2060; J2270; J2405; J3370; J7030